=== PATIENT | male | born 1985 | race Caucasian/White ===

== ENCOUNTER 2017-12-27 23:26 | Emergency (ER) | payer OTHER ==
[~2017-12-27] VITALS: Ht 182.9 cm; Wt 102.1 kg
[2017-12-28] MEDS ORDERED: NORCO 5-325 TA1 EACH PO (00:28)
[2017-12-28 00:53] VITALS: BP 136/93
== END 2017-12-28 00:54 | disposition home or self-care (01) ==
LOC: M.ERS 23:26
DX: S92.352A Displaced fracture of fifth metatarsal bone, left foot, initial encounter for closed fracture (principal); Z88.1 Allergy status to other antibiotic agents; W22.8XXA Striking against or struck by other objects, initial encounter; Y92.89 Other specified places as the place of occurrence of the external cause; Y99.0 Civilian activity done for income or pay; Y99.8 Other external cause status